=== PATIENT | female | born 2000 | race Caucasian/White ===

== ENCOUNTER 2025-10-14 21:16 | Inpatient (IN) | payer OTHER ==
[~2025-10-14] VITALS: Ht 162.6 cm; Wt 108.9 kg
[2025-10-14] MEDS: SODIUM CHLORIDE 0.9% 1,000 ML IV ONE (21:39)
[2025-10-14] MEDS: METHYLPREDNISOLONE SOD SUCC 125MG/2ML (ACT-O-VIAL) IV ONE (21:39)
[2025-10-14] MEDS: ASPIRIN 81MG TABLET PO ONE (21:40)
[2025-10-14] MEDS: MAGNESIUM 2 G PREMIX 50 ML IV ONE (21:40)
[2025-10-14 21:43] LABS: BASOPHILS % 0.4 % (0.0-2.0); EOSINOPHILS % 0.1 % (0.0-5.0); HEMATOCRIT. 40.1 % (36.0-48.0); HEMOGLOBIN. 13.5 g/dL (12.0-16.0); LYMPHOCYTES % 11.9 % (20.0-50.0); MEAN PLATELET VOLUME 8.2 fl (7.4-10.4); MONOCYTES % 2.1 % (2.0-8.0); NEUTROPHILS % 85.5 % (40.0-76.0); PLATELET 350 x1000/uL (130-400); RED BLOOD CELL COUNT 4.93 mill/uL (4.2-5.4); RED CELL DISTRIBUTION WIDTH 14.1 % (11.6-14.6)
[2025-10-14 21:59] LABS: INR 1.0
[2025-10-14 22:05] LABS: CREATININE 0.7 mg/dL (0.6-1.0); UREA NITROGEN BLOOD 7 mg/dL (9-23)
[2025-10-14 22:06] LABS: HCG SCREEN NEGATIVE; TROPONIN I HIGH SENSITIVITY < 4 ng/L (3.0-34)
[2025-10-14 22:07] LABS: ASPARTATE AMINOTRANSFERASE 20 IU/L (<34); BILIRUBIN DIRECT < 0.1 mg/dL (<=3.0); BILIRUBIN TOTAL 0.3 mg/dL (0.1-1.0); PROTEIN TOTAL 7.4 g/dL (6.0-8.3)
[2025-10-14] MEDS: POTASSIUM CHLORIDE 20MEQ/PACKET PO ONE (23:47)
[2025-10-15] VITALS (10 sets, daily range): BP systolic 119–140; BP diastolic 70–92; PULSE 68–111; RESP 18–22; TEMP 36.3–37.3076; O2SAT 92–98
[2025-10-15] MEDS: IPRATROPIUM BROMIDE (0.02%) 0.5MG/2.5ML NEB HHN ONE (01:05)
[2025-10-15] MEDS ORDERED: ACETAMINOPHEN 325MG TABLET PO PRN ×2 (03:45→11:45)
[2025-10-15] MEDS ORDERED: ALBU90AE INH (06:31)
[2025-10-15] MEDS ORDERED: CICL6.1H2 INH (06:31)
[2025-10-15] MEDS ORDERED: IPRATROPIUM/ALBUTEROL 0.5-3(2.5)MG/3ML NEB HHN PRN (09:00)
[2025-10-15] MEDS: METOPROLOL TARTRATE 50MG TABLET PO SCH (10:01)
[2025-10-15] MEDS: POTASSIUM CHLORIDE 20MEQ TABLET SR PO SCH (10:02)
[2025-10-15] MEDS ORDERED: CLONIDINE 0.1MG TABLET PO PRN (11:45)
[2025-10-15] MEDS ORDERED: ONDANSETRON HCL 4MG/2ML INJ IV PRN (11:45)
[2025-10-15] MEDS: ASPIRIN 81MG TABLET PO SCH (12:21)
[2025-10-15] MEDS: PANTOPRAZOLE SODIUM 40 MG/VIAL IV SCH (12:21)
[2025-10-15] MEDS: METHYLPREDNISOLONE SOD SUCC 40MG/ML (ACT-O-VIAL) IV SCH (12:21)
[2025-10-15] MEDS: ENOXAPARIN 30MG/0.3ML SYR SUBCUT SCH (12:22)
[2025-10-15] MEDS: IPRATROPIUM/ALBUTEROL 0.5-3(2.5)MG/3ML NEB HHN SCH (12:48)
[2025-10-15 13:16] LABS: BG BASE EXCESS -1.4 mmol/L (-2.0-3.0); BG CARBOXYHEMOGLOBIN 0.4 % (0.5-1.5); BG DEOXYHEMOGLOBIN 7.4 % (0.0-5.0); BG FRACTION INSPIRED OXYGEN 21; BG HCO3 ACT 21.5 mmol/L (21.0-28.0); BG METHEMOGLOBIN 0.3 % (0.5-1.5); BG OXYGEN SATURATION 92.5 % (94.0-98.0); BG OXYHEMOGLOBIN 91.9 % (94.0-98.0); BG PCO2 31.2 mmHg (32.0-45.0); BG PH 7.456 (7.350-7.450); BG PO2 59.8 mmHg (83.0-108.0); BG SAMPLE SITE RIGHT RADIAL; BG TOTAL HEMOGLOBIN 13.8 g/dL (12.0-16.0); BG VENT MODE ROOM AIR
[2025-10-15 14:07] LABS: BASOPHILS % 0.1 % (0.0-2.0); EOSINOPHILS % 0.0 % (0.0-5.0); HEMATOCRIT. 38.5 % (36.0-48.0); HEMOGLOBIN. 12.6 g/dL (12.0-16.0); LYMPHOCYTES % 12.6 % (20.0-50.0); MEAN PLATELET VOLUME 8.5 fl (7.4-10.4); MONOCYTES % 7.8 % (2.0-8.0); NEUTROPHILS % 79.5 % (40.0-76.0); PLATELET 379 x1000/uL (130-400); RED BLOOD CELL COUNT 4.63 mill/uL (4.2-5.4); RED CELL DISTRIBUTION WIDTH 14.6 % (11.6-14.6)
[2025-10-15 14:20] LABS: INR 0.9
[2025-10-15 14:26] LABS: TROPONIN I HIGH SENSITIVITY < 4 ng/L (3.0-34)
[2025-10-15 14:27] LABS: CREATININE 0.5 mg/dL (0.6-1.0)
[2025-10-15 14:28] LABS: CREATINE KINASE MB FRACTION < 0.5 ng/mL (0.5-3.6); LDL CHOLESTEROL 114 mg/dL (5-100); TRIGLYCERIDE 116 mg/dL (0-150); UREA NITROGEN BLOOD 6 mg/dL (9-23)
[2025-10-15 14:29] LABS: ASPARTATE AMINOTRANSFERASE 11 IU/L (<34); BILIRUBIN DIRECT < 0.1 mg/dL (<=3.0)
[2025-10-15 14:30] LABS: BILIRUBIN TOTAL 0.3 mg/dL (0.1-1.0); PHOSPHORUS 2.9 mg/dL (2.5-4.9)
[2025-10-15 14:41] LABS: PROTEIN TOTAL 7.2 g/dL (6.0-8.3)
[2025-10-15] MEDS ORDERED: DILTIAZEM HCL 5MG/ML 5ML VIAL IV PRN (16:00)
[2025-10-15] MEDS: DILTIAZEM HCL 30MG TABLET PO SCH (21:55)
[2025-10-15 22:24] LABS: TROPONIN I HIGH SENSITIVITY < 4 ng/L (3.0-34)
[2025-10-15] MEDS: ACETAMINOPHEN 325MG TABLET PO PRN (23:10)
[2025-10-15] MEDS: INFLUENZA VACCINE 05/PF 0.5 ML SYRINGE IM ONE (23:10)
[2025-10-15 23:54] LABS: CLARITY URINE CLEAR (CLEAR); COLOR URINE YELLOW (YELLOW); GLUCOSE URINE NEGATIVE (NEGATIVE); KETONES URINE NEGATIVE (NEGATIVE); LEUKOCYTE ESTERASE URINE NEGATIVE (NEGATIVE); NITRITE URINE NEGATIVE (NEGATIVE); OCCULT BLOOD URINE TRACE (NEGATIVE); PH URINE 7.0 (4.5-8.0); PROTEIN URINE NEGATIVE (NEGATIVE); SPECIFIC GRAVITY URINE 1.022 (1.005-1.030); UROBILINOGEN URINE 0.2 E.U./dL (0.2-1.0)
[2025-10-16] VITALS (10 sets, daily range): BP systolic 121–138; BP diastolic 75–88; PULSE 73–96; RESP 16–24; TEMP 36.6–37.1; O2SAT 92–97
[2025-10-16 00:08] LABS: *AMPHETAMINES SCREEN URINE NEGATIVE (NEGATIVE); *BARBITURATES SCREEN URINE NEGATIVE (NEGATIVE); *BENZODIAZEPINES SCREEN URINE NEGATIVE (NEGATIVE); *COCAINE SCREEN URINE NEGATIVE (NEGATIVE); CANNABINOID URINE SCREEN NEGATIVE (NEGATIVE); ECSTASY MDMA SCREEN URINE NEGATIVE (NEGATIVE); METHADONE URINE SCREEN NEGATIVE (NEGATIVE); OPIATES URINE SCREEN NEGATIVE (NEGATIVE); PHENCYCLIDINE URINE SCREEN NEGATIVE (NEGATIVE)
[2025-10-16 00:30] LABS: SQUAMOUS EPITHELIAL CELL URINE FEW /lpf (RARE/1+)
[2025-10-16 00:31] LABS: BACTERIA URINE NONE SEEN; RBC URINE 0-2 /hpf (0-2); WBC URINE 0-2 /hpf (0-2)
[2025-10-16 07:08] LABS: BASOPHILS % 0.1 % (0.0-2.0); EOSINOPHILS % 0.0 % (0.0-5.0); HEMATOCRIT. 38.2 % (36.0-48.0); HEMOGLOBIN. 12.9 g/dL (12.0-16.0); LYMPHOCYTES % 10.3 % (20.0-50.0); MEAN PLATELET VOLUME 8.1 fl (7.4-10.4); MONOCYTES % 4.7 % (2.0-8.0); NEUTROPHILS % 84.9 % (40.0-76.0); PLATELET 337 x1000/uL (130-400); RED BLOOD CELL COUNT 4.64 mill/uL (4.2-5.4); RED CELL DISTRIBUTION WIDTH 14.0 % (11.6-14.6)
[2025-10-16 07:37] LABS: CREATININE 0.5 mg/dL (0.6-1.0)
[2025-10-16 07:38] LABS: UREA NITROGEN BLOOD 11 mg/dL (9-23)
[2025-10-16] MEDS: DOCUSATE SODIUM 100MG CAPSULE PO PRN (11:21)
[2025-10-16] MEDS ORDERED: IPRATROPIUM BROMIDE (0.02%) 0.5MG/2.5ML NEB ONE (16:39)
[2025-10-16] MEDS ORDERED: ALBUTEROL (0.5%) 2.5MG/0.5ML NEB HHN ONE (16:40)
[2025-10-17] VITALS (10 sets, daily range): BP systolic 122–138; BP diastolic 68–94; PULSE 65–91; RESP 14–22; TEMP 36.7–37; O2SAT 93–96
[2025-10-17 13:06] LABS: HEMATOCRIT. 38.9 % (36.0-48.0); HEMOGLOBIN. 13.0 g/dL (12.0-16.0); MEAN PLATELET VOLUME 8.2 fl (7.4-10.4); PLATELET 365 x1000/uL (130-400); RED BLOOD CELL COUNT 4.74 mill/uL (4.2-5.4); RED CELL DISTRIBUTION WIDTH 13.7 % (11.6-14.6)
[2025-10-17 13:34] LABS: CREATININE 0.6 mg/dL (0.6-1.0)
[2025-10-17 13:35] LABS: UREA NITROGEN BLOOD 12 mg/dL (9-23)
[2025-10-17 16:08] LABS: LYMPHOCYTES % MANUAL 13.0 % (20.0-60.0); MONOCYTES % MANUAL 4.0 % (2.0-8.0); NEUTROPHILS % MANUAL 83.0 % (45.0-75.0); PLATELET ESTIMATE NORMAL
== END 2025-10-17 16:30 | disposition short-term general hospital (02) | DRG 189 ==
LOC: ER 21:16 → EDBEDREQTM 23:55 → EDBEDREQ 23:55 → ENRESERV 10-15 02:24 → 3WST 10-15 02:54
PROVIDERS: ADMIT Internal Medicine; ATTEND Internal Medicine
DX: J96.01 Acute respiratory failure with hypoxia (principal); I47.10 Supraventricular tachycardia, unspecified; J45.901 Unspecified asthma with (acute) exacerbation; I10 Essential (primary) hypertension; E78.5 Hyperlipidemia, unspecified; D72.829 Elevated white blood cell count, unspecified; E87.6 Hypokalemia; F41.9 Anxiety disorder, unspecified; Z79.899 Other long term (current) drug therapy
CPT/HCPCS: 36415; 36600; 71045; 80048; 80061; 80076; 80305; 81003; 82375; 82550; 82553; 82805; 83605; 83735; 83880; 84100; 84145; 84439; 84443; 84484; 84703; 85025; 85379; 90686; 93005; 93306; 94070; 94640; 94760; 96365; 96375; 99285; A4606; J1650; J2470; J2919; J3475; J7030